=== PATIENT | female | born 1975 | race Caucasian/White ===

== ENCOUNTER → 2020-07-09 | Outpatient (CLI) | payer BC ==
[2020-07-09 23:13] LABS: HCT 37.7 % (37.2-46.3); MCH 28.5 pg (27.0-32.0); MCHC 31.8 g/dL (32.0-37.0); MCV 89.5 fL (80.0-97.0); Mean Platelet Volume 10.2 fL (9.5-12.2); Platelet Count 418 X 10*3/uL (140-440); RBC 4.21 X 10*6/uL (4.10-5.20); RDW 14.6 % (11.5-14.5); WBC 10.92 X 10*3/uL (4.50-10.00)
== END | disposition home or self-care (01) ==
LOC: LABWHC1 14:44
PROVIDERS: ATTEND Orthopaedic Surgery
DX: Z01.812 Encounter for preprocedural laboratory examination (principal); M17.0 Bilateral primary osteoarthritis of knee
CPT/HCPCS: 36415; 85027; 87070

== ENCOUNTER → 2022-02-17 | Outpatient (CLI) | payer BC ==
[2022-02-17 19:10] LABS: Basophils # (A) 0.04 X 10*3/uL (0.00-0.10); Basophils % (A) 0.4 %; Eosinophils # (A) 0.32 X 10*3/uL (0.04-0.35); Eosinophils % (A) 3.5 %; HCT 41.8 % (37.2-46.3); HGB 13.1 g/dL (12.0-15.0); Immature Grans, Automated 0.2 %; Lymphocytes # (A) 2.58 X 10*3/uL (0.90-5.00); Lymphocytes % (A) 28.4 %; MCH 26.9 pg (27.0-32.0); MCHC 31.3 g/dL (32.0-37.0); MCV 85.8 fL (80.0-97.0); Monocytes # (A) 0.46 X 10*3/uL (0.20-1.00); Monocytes % (A) 5.1 %; NRBC Per 100 WBC 0 /100 WBCS (0.0-0.0); Neutrophils # (A) 5.67 X 10*3/uL (1.80-7.70); Neutrophils % (A) 62.4 %; Platelet Count 448 X 10*3/uL (140-440); RBC 4.87 X 10*6/uL (4.10-5.20); RDW 15.1 % (11.5-14.5); WBC 9.09 X 10*3/uL (4.50-10.00)
[2022-02-17 21:54] LABS: Erythrocyte Sedimentation Rate 54 mm/Hr (0-20)
== END | disposition home or self-care (01) ==
LOC: LABWHC1 10:20
PROVIDERS: ATTEND Orthopaedic Surgery
DX: Z09 Encounter for follow-up examination after completed treatment for conditions other than malignant neoplasm (principal); M25.662 Stiffness of left knee, not elsewhere classified; M25.462 Effusion, left knee; Z96.652 Presence of left artificial knee joint
CPT/HCPCS: 36415; 85025; 85652; 86140